=== PATIENT | female | born 1935 | race Caucasian/White ===

== ENCOUNTER → 2018-10-15 10:20 | Outpatient (CLI) | payer MEDICARE, BC, SELFPAY ==
--- NOTE | 2018-10-15 10:24 | US_ITS ---
US Arterial Ankle Brachial Ind History: Wrist pain, claudication, leg pain, smoker, ITS.REASON: Skin Changes ORDERING PHYSICIAN: Julissa Alfonso DPM PATIENT AGE: 83 years TECHNIQUE: Segmental pressures obtained of both right and left leg. These are compared to brachial blood pressure to yield index at each level sampled including summary ISMA. The data sheets from the procedure are available in PACS FINDINGS Rest study only performed today No prior studies available for comparison. Blood pressures reported are in millimeters mercury. RIGHT LEG ISMA = 1.1. RIGHT LEG TBI=.6 Brachial BP: 124 Thigh BP: 147 Calf BP: 134 Ankle PT: 133 Ankle DP : 123 Digit =71 LEFT LEG ISMA = 1.0 LEFT LEG TBI= .6 Brachial BPD: 122 Thigh BP: 127 Calf BP: 129 Ankle PT:121 Ankle DP: 125 Digit = 77 Pulses and waveforms: Normal pulses with diminished waveforms IMPRESSION: The ABIs as reported above are within normal limits. The TBI's are slightly depressed at 0.6 suggesting small vessel disease. Normal pulses with diminished waveforms
== END ==
PROVIDERS: PCP Pediatrics; Visit Provider Podiatrist
DX: R09.89 Other specified symptoms and signs involving the circulatory and respiratory systems (principal)
CPT/HCPCS: 93922